=== PATIENT | male | born 1955 | race Caucasian/White ===

== ENCOUNTER 2025-02-02 21:59 | Inpatient (IN) | payer MEDICARE, OTHER ==
[~2025-02-02] VITALS: Ht 180.3 cm; Wt 79.4 kg
[2025-02-02 22:53] LABS: PLATELET COUNT (AUTO) 245 K/uL (150-450); RED BLOOD CELL COUNT(AUTO) 4.71 MIL/uL (4.5-6.0); RED CELL DISTRIBUTION WIDTH 14.2 % (11.5-15.0); WHITE BLOOD COUNT (AUTO) 11.5 K/uL (4.3-11.0)
[2025-02-02 23:04] LABS: ASPARTATE AMINOTRANSFERASE 32 U/L (15-37); CALCIUM, SERUM 8.5 mg/dL (8.5-10.1); CREATININE 0.8 mg/dL (0.6-1.3); SODIUM SERUM 138 mmol/L (136-145); TOTAL PROTEIN, SERUM 7.9 g/dL (6.4-8.2); UREA NITROGEN, BLOOD 24 mg/dL (7-18)
[2025-02-02 23:06] LABS: ALCOHOL, BLOOD < 3 mg/dL (0-10)
[2025-02-03 00:24] LABS: APPEARANCE,URINE CLEAR (CLEAR); BLOOD, URINE NEGATIVE Ery/uL (NEGATIVE); LEUKOCYTE ESTERASE ,URINE NEGATIVE (NEGATIVE); NITRITE, URINE NEGATIVE (NEGATIVE); UGLUCOSE NEGATIVE (NEGATIVE)
[2025-02-03 00:30] LABS: AMPHETAMINE, URINE NEGATIVE (NEGATIVE); BARBITURATE, URINE NEGATIVE (NEGATIVE); BENZODIAZEPINE, URINE NEGATIVE (NEGATIVE); CANNABINOID, URINE NEGATIVE (NEGATIVE); COCCAINE, URINE NEGATIVE (NEGATIVE); OPIATE, URINE NEGATIVE (NEGATIVE)
[2025-02-03] MEDS ORDERED: CHOL200010 PO (02:49)
[2025-02-03] MEDS ORDERED: ATOR20TA PO (02:49)
[2025-02-03] MEDS ORDERED: BUSP7.5T7 PO (02:49)
[2025-02-03] MEDS ORDERED: CARB1TAB60 PO (02:49)
[2025-02-03] MEDS ORDERED: GABA-532 PO (02:49)
[2025-02-03] MEDS ORDERED: LOSA25TA3 PO (02:49)
[2025-02-03] MEDS ORDERED: PRAM0.253 PO (02:49)
[2025-02-03] MEDS ORDERED: LACT10SO29 PO (02:49)
[2025-02-03] MEDS ORDERED: ACET325T53 PO (02:49)
[2025-02-03] MEDS ORDERED: DIVA125T2 PO (02:49)
[2025-02-03] MEDS ORDERED: DIGO250T PO (02:49)
[2025-02-03] MEDS ORDERED: BISO5TAB20 PO (02:49)
[2025-02-03] MEDS ORDERED: MAG HYDROX/AL HYDROX/SIMETH 30 ML UDC PO PRN (04:00)
[2025-02-03] MEDS: BLOOD SUGAR DIAGNOSTIC 1 EACH STRIP IN ONE (04:13)
[2025-02-03 04:40] VITALS: BP 133/72; TEMP 98.8; O2SAT 99
[2025-02-03 08:00] VITALS: BP 126/94; TEMP 96.2; O2SAT 97
[2025-02-03] MEDS ORDERED: MULT-594 PO (08:19)
[2025-02-03] MEDS ORDERED: FLUT200B IH (08:19)
[2025-02-03] MEDS ORDERED: ALBU18HF2 IH (08:19)
[2025-02-03] MEDS ORDERED: CARB1TAB21 PO (08:19)
[2025-02-03] MEDS ORDERED: APIX5TAB PO (08:19)
[2025-02-03] MEDS: GABAPENTIN 100 MG CAPSULE PO SCH (12:13)
[2025-02-03] MEDS: CARBIDOPA/LEVODOPA 25/100 MG 1 UDTAB PO SCH (12:13)
[2025-02-03] MEDS: PRAMIPEXOLE DI-HCL 0.25 MG TABLET PO SCH (12:13)
[2025-02-03] MEDS: QUETIAPINE FUMARATE 25 MG TABLET PO PRN (13:37)
[2025-02-03] MEDS: BUDESONIDE RESPULE INH 0.5 MG/2 ML AMPUL.NEB NEB SCH (15:00)
[2025-02-03] MEDS: METOPROLOL TARTRATE 25 MG TABLET PO SCH (16:21)
[2025-02-03] MEDS: APIXABAN 5 MG TABLET PO SCH (16:22)
[2025-02-03 17:00] VITALS: BP 130/79; TEMP 97.9; O2SAT 97
[2025-02-03] MEDS ORDERED: BISOPROLOL FUMARATE 5 MG TABLET PO SCH (17:00)
[2025-02-03] MEDS ORDERED: DIVALPROEX SODIUM 125 MG TABLET.DR PO SCH (17:00)
[2025-02-03 21:13] VITALS: BP 128/87; TEMP 98; O2SAT 98
[2025-02-03] MEDS: ATORVASTATIN 10 MG TABLET PO SCH (21:40)
[2025-02-03] MEDS: MIRTAZAPINE 15 MG TABLET PO SCH (21:40)
[2025-02-04 07:58] LABS: CREATININE 0.8 mg/dL (0.6-1.3)
[2025-02-04 08:00] VITALS: BP 100/62; TEMP 97.6; O2SAT 96
[2025-02-04 08:02] LABS: LDL 38 mg/dL (0-99)
[2025-02-04 08:10] LABS: CALCIUM, SERUM 8.5 mg/dL (8.5-10.1); CREATININE 0.8 mg/dL (0.6-1.3); SODIUM SERUM 135.0 mmol/L (136-145); UREA NITROGEN, BLOOD 18.0 mg/dL (7-18)
[2025-02-04 08:15] LABS: ASPARTATE AMINOTRANSFERASE 42.0 U/L (15-37); TOTAL PROTEIN, SERUM 8.1 g/dL (6.4-8.2)
[2025-02-04 08:47] LABS: VALPROIC ACID 5.0 ug/mL (50-100)
[2025-02-04] MEDS ORDERED: FLUTICASONE FUROATE IH SCH (09:00)
[2025-02-04] MEDS: LOSARTAN POTASSIUM 25 MG TABLET PO SCH (11:57)
[2025-02-04] MEDS: DIGOXIN 0.25 MG TABLET PO SCH (12:13)
[2025-02-04 16:00] VITALS: BP 110/91; TEMP 97.9; O2SAT 97
[2025-02-04 20:38] VITALS: BP 139/92; TEMP 98.2; O2SAT 98
[2025-02-05 08:20] VITALS: BP 102/77; TEMP 98.1; O2SAT 98
[2025-02-05 15:00] VITALS: O2SAT 97
[2025-02-05 15:05] VITALS: O2SAT 99
[2025-02-05 17:49] VITALS: BP 117/82; TEMP 97.7; O2SAT 98
[2025-02-05 20:45] VITALS: BP 111/76; TEMP 97.9; O2SAT 98
[2025-02-06 08:00] VITALS: BP 141/76; TEMP 98.1; O2SAT 99
[2025-02-06 08:11] VITALS: O2SAT 97
[2025-02-06] MEDS: CIPROFLOXACIN HCL 0.3% 5 ML BOTTLE EACHEYE SCH (08:15)
[2025-02-06 08:21] VITALS: O2SAT 99
[2025-02-06 16:09] VITALS: BP 102/64; TEMP 97; O2SAT 93
[2025-02-06] MEDS: GABAPENTIN 100 MG CAPSULE PO SCH (17:33)
[2025-02-06 20:09] VITALS: BP 105/72; TEMP 97.9; O2SAT 100
[2025-02-06] MEDS: OXCARBAZEPINE 150 MG TABLET PO SCH (21:31)
[2025-02-07 08:00] VITALS: BP 142/78; TEMP 97.7; O2SAT 93
[2025-02-07 14:36] VITALS: O2SAT 95
[2025-02-07 14:43] VITALS: O2SAT 98
[2025-02-07 16:13] VITALS: BP 122/88; TEMP 97.8; O2SAT 94
[2025-02-07 20:01] VITALS: BP 111/85; TEMP 98.2; O2SAT 93
[2025-02-08 08:00] VITALS: BP 143/80; TEMP 98.6; O2SAT 97
[2025-02-08 16:00] VITALS: BP 120/80; TEMP 97.7; O2SAT 97
[2025-02-08 19:54] VITALS: BP 101/68; TEMP 98.4; O2SAT 99
[2025-02-08 20:00] VITALS: BP 101/68; TEMP 98.4; O2SAT 99
[2025-02-09 08:00] VITALS: BP 118/90; TEMP 97.7; O2SAT 94
[2025-02-09 08:02] LABS: ASPARTATE AMINOTRANSFERASE 19.0 U/L (15-37); CALCIUM, SERUM 8.7 mg/dL (8.5-10.1); CREATININE 0.7 mg/dL (0.6-1.3); SODIUM SERUM 140.0 mmol/L (136-145); TOTAL PROTEIN, SERUM 8.3 g/dL (6.4-8.2); UREA NITROGEN, BLOOD 12.0 mg/dL (7-18)
[2025-02-09 16:00] VITALS: BP 100/51; TEMP 97.8; O2SAT 99
[2025-02-09 16:07] VITALS: O2SAT 99
[2025-02-09] MEDS: QUETIAPINE FUMARATE 25 MG TABLET PO SCH (21:29)
[2025-02-10 08:00] VITALS: BP 120/82; TEMP 97.7; O2SAT 95
[2025-02-10 15:24] VITALS: O2SAT 97
[2025-02-10 16:00] VITALS: BP 115/62; TEMP 97.7; O2SAT 99
[2025-02-10 20:00] VITALS: BP 112/76; TEMP 98; O2SAT 99
[2025-02-10] MEDS: QUETIAPINE FUMARATE 25 MG TABLET PO SCH (21:17)
[2025-02-11 08:00] VITALS: BP 118/78; TEMP 98.8; O2SAT 98
[2025-02-11] MEDS: Z GUARD REMEDY 4 OZ OINT TP SCH (09:07)
[2025-02-11 16:00] VITALS: BP 93/58; TEMP 98.7; O2SAT 98
[2025-02-11 20:18] VITALS: BP 109/63; TEMP 98.2; O2SAT 97
[2025-02-11] MEDS: Z GUARD REMEDY 4 OZ OINT TP PRN (21:13)
[2025-02-12 08:00] VITALS: BP 138/91; TEMP 97.5; O2SAT 98
[2025-02-12] MEDS: MAGNESIUM HYDROXIDE 30 ML UDC PO PRN (13:06)
[2025-02-12 16:00] VITALS: BP 111/82; TEMP 98.4; O2SAT 99
[2025-02-12 20:36] VITALS: BP 101/61; TEMP 98.2; O2SAT 99
[2025-02-13 08:00] VITALS: BP 116/76; TEMP 98.7; O2SAT 98
[2025-02-13 16:00] VITALS: BP 122/99; TEMP 97.5; O2SAT 98
[2025-02-13 19:56] VITALS: BP 125/89; TEMP 97.6; O2SAT 99
[2025-02-14] MEDS: ACETAMINOPHEN 325 MG TABLET PO PRN (05:18)
[2025-02-14 08:00] VITALS: BP 131/93; TEMP 98.1; O2SAT 98
[2025-02-14 16:00] VITALS: BP 129/83; TEMP 98.1; O2SAT 100
[2025-02-14 20:08] VITALS: BP 98/58; TEMP 98.2; O2SAT 99
[2025-02-15 08:00] VITALS: BP 132/96; TEMP 97.7; O2SAT 98
[2025-02-15] MEDS: ALBUTEROL FS 2.5 MG/3 ML VIAL.NEB NEB PRN (08:19)
[2025-02-15 08:20] VITALS: O2SAT 97
[2025-02-15 08:33] VITALS: O2SAT 100
[2025-02-15 08:45] VITALS: BP 132/96
== END 2025-02-15 12:50 | DRG 885 ==
LOC: ER 22:11 → GPS 02-03 02:34
PROVIDERS: ADMIT Psychiatry & Neurology Psychiatry; ATTEND Nurse Practitioner Family
DX: F39 Unspecified mood [affective] disorder (principal); F06.8 Other specified mental disorders due to known physiological condition; I11.0 Hypertensive heart disease with heart failure; G93.49 Other encephalopathy; F02.82 Dementia in other diseases classified elsewhere, unspecified severity, with psychotic disturbance; F02.818 Dementia in other diseases classified elsewhere, unspecified severity, with other behavioral disturbance; E44.1 Mild protein-calorie malnutrition; F29 Unspecified psychosis not due to a substance or known physiological condition; I50.9 Heart failure, unspecified; I48.91 Unspecified atrial fibrillation; J44.9 Chronic obstructive pulmonary disease, unspecified; M19.90 Unspecified osteoarthritis, unspecified site; G20.A1 Parkinson's disease without dyskinesia, without mention of fluctuations; F10.21 Alcohol dependence, in remission; F31.9 Bipolar disorder, unspecified; E78.5 Hyperlipidemia, unspecified; E88.09 Other disorders of plasma-protein metabolism, not elsewhere classified; H93.8X2 Other specified disorders of left ear; H02.9 Unspecified disorder of eyelid; R13.10 Dysphagia, unspecified; Z20.822 Contact with and (suspected) exposure to COVID-19; Z73.6 Limitation of activities due to disability; Z87.891 Personal history of nicotine dependence; Z79.01 Long term (current) use of anticoagulants; R62.7 Adult failure to thrive; Z88.0 Allergy status to penicillin; Z88.8 Allergy status to other drugs, medicaments and biological substances; Z91.199 Patient's noncompliance with other medical treatment and regimen due to unspecified reason
CPT/HCPCS: 36415; 80048-TC; 80053-TC; 80061-TC; 80076-TC; 80164-TC; 82565-TC; 82962-TC; 85025-TC; 87081-TC; 94762-TC; 94799-TC; 97110-TC; 97112-TC; 97116-TC; 97530-TC; G0480